=== PATIENT | male | born 1970 | race Caucasian/White ===

== ENCOUNTER 2017-10-04 21:19 | Emergency (ER) | payer BC, OTHER ==
[2017-10-04 21:21] VITALS: BP 148/75; PULSE 70; RESP 20; TEMP 97.8; O2SAT 97
[2017-10-04] MEDS ORDERED: LIDOCAINE HCL 1% 50 ML VIAL INFIL ONE (21:45)
[2017-10-04] MEDS ORDERED: LIDOCAINE HCL 1% PF 30 ML VIAL INFIL ONE (21:45)
[2017-10-04] MEDS ORDERED: GLIP10TA6 PO (21:46)
[2017-10-04] MEDS ORDERED: DAPA1TAB PO (21:46)
[2017-10-04] MEDS ORDERED: CETI10CH CHEW (21:46)
[2017-10-04] MEDS ORDERED: ESCI10TA PO (21:46)
[2017-10-04] MEDS ORDERED: ASPI-516 CHEW (21:46)
[2017-10-04] MEDS ORDERED: HYZA100T6 PO (21:46)
[2017-10-04] MEDS ORDERED: CARV12.52 PO (21:46)
--- NOTE | 2017-10-04 22:19 | PD ---
HPI Chief Complaint: Laceration/Skin Injury Time Seen by Provider: 21:36 Travel History International Travel<30 days: No Contact w/Intl Traveler<30days: No Traveled to known affect area: No History of Present Illness HPI The patient is a 46-year-old right-hand dominant male that was cutting cheese at 5 PM this afternoon when he accidentally cut his left fourth fingertip. He tried bandage it but it continued to bleed and he came into the emergency department. He also has a minor laceration on his left third finger which has been bandaged. PFSH Past Medical History Hx Anticoagulant Therapy: Yes (ASSA) Social History Tobacco Use: No Allergies-Medications (Allergen,Severity, Reaction): Coded Allergies: varenicline (Verified Allergy, Unknown, DERMATIAGRAPHISM, 10/04/17) Reported Meds & Prescriptions Reported Meds & Active Scripts Active Reported Hyzaar (Losartan-Hydrochlorothiazide) 100-25 Mg Tab 1 Tab PO DAILY Cetirizine (Cetirizine HCl) 10 Mg Chew 10 Mg CHEW DAILY Carvedilol 12.5 Mg Tab 12.5 Mg PO BID Glipizide 10 Mg Tab 10 Mg PO DAILY Take 30 minutes before a meal Aspirin 81 Mg Chew 81 Mg CHEW DAILY Farxiga (Dapagliflozin) 5 Mg Tab 5 Mg PO DAILY Escitalopram (Escitalopram Oxalate) 10 Mg Tab 10 Mg PO DAILY Review of Systems Except as stated in HPI: all other systems reviewed are Neg Physical Exam Narrative GENERAL: Well-nourished, well-developed patient. SKIN: Focused skin assessment warm/dry. There is a 2 cm long flap laceration on the tip of the fourth finger. There is movement along this flap and the flap portion is slightly dusky. The third finger has an 4 mm laceration on the volar touch pad that does not need suturing but will respond to simple bandaging. HEAD: Normocephalic. EYES: No scleral icterus. No injection or drainage. NECK: Supple, trachea midline. No JVD or lymphadenopathy. CARDIOVASCULAR: Regular rate and rhythm without murmurs, gallops, or rubs. RESPIRATORY: Breath sounds equal bilaterally. No accessory muscle use. GASTROINTESTINAL: Abdomen soft, non-tender, nondistended. MUSCULOSKELETAL: No cyanosis, or edema. BACK: Nontender without obvious deformity. No CVA tenderness. Data Data Last Documented VS Vital Signs Date Time Temp Pulse Resp B/P (MAP) Pulse Ox O2 Delivery O2 Flow Rate FiO2 10/04/17 21:21 97.8 70 20 148/75 (99) 97 Orders Orders Lidocaine 1% Inj (50 Ml) (Xylocaine 1% I (10/04/17 21:45) Lidocaine Pf 1% Inj (Xylocaine-Mpf 1% In (10/04/17 21:45) MDM Medical Decision Making Medical Screen Exam Complete: Yes Emergency Medical Condition: Yes Medical Record Reviewed: Yes Differential Diagnosis Laceration not need suturing, laceration needing suture repair, Narrative Course The patient has a laceration on the fourth finger that needed suturing. This is a flap laceration. The flap was unstable and needed tacking down for better chance of survival. The third finger had a minor laceration that needs simple bandaging. Impression finger lacerations Plan: The patient will return in 10 days for suture removal. He will return immediately if any problems. He is to use antibiotic ointment and change the bandage daily. He is to keep the lacerations clean and dry. Procedures Procedure Narrative The skin was cleaned with Betadine and the wound was irrigated with saline. A digital block was done and, under sterile technique the laceration was sewn with 5 stitches of 5-0 nylon. The patient tolerated the procedure well. Diagnosis Primary Impression: Finger laceration Additional Instructions: As we discussed, follow-up in 10 days for suture removal. If you have any problems return immediately for reevaluation. Keep the fingers clean and dry and use antibiotic ointment and bandage changes daily. The bandage we put on tonight can go for 2 days before changing. Med/Other Pt SpecificInfo: No Change to Meds Disposition: 01 DISCHARGE HOME Condition: Stable Diogo Herrera MD Oct 04, 2017 22:19
== END 2017-10-04 23:00 | disposition home or self-care (01) ==
LOC: PHED 21:19
DX: S61.215A Laceration without foreign body of left ring finger without damage to nail, initial encounter (principal); W26.0XXA Contact with knife, initial encounter; Y93.G1 Activity, food preparation and clean up; Y92.000 Kitchen of unspecified non-institutional (private) residence as the place of occurrence of the external cause; Z79.82 Long term (current) use of aspirin
CPT/HCPCS: 12001